=== PATIENT | female | born 1950 | race Caucasian/White ===

== ENCOUNTER 2017-01-09 10:14 | Outpatient (CLI) | payer OTHER ==
[2017-01-09 10:54] LABS: #Basophils 0.1 thou/uL (0.0-0.2); #Eosinphils 0.1 thou/uL (0.0-0.7); #Lymphocytes 1.5 thou/uL (1.20-3.40); #Monocytes 0.5 thou/uL (0.11-0.59); #Neutrophils 2.6 thou/uL (1.40-6.50); %Basophils 1.8 % (0.0-1.0); %Eosinophils 2.4 % (0.0-10.0); %Lymphocytes 31.6 % (21.0-51.0); %Monocytes 9.9 % (0.0-10.0); %Neutrophils 54.3 % (42.0-75.0); Hemoglobin 14.3 g/dL (12.0-16.0); Mean Corpuscular HGB CONC 31.9 g/dL (32.0-36.0); Mean Corpuscular Hemoglobin 28.8 pg (27.0-31.0); Mean Corpuscular Volume 90.4 fl (81.0-99.0); Mean Platelet Volume 10.3 fL (7.4-10.4); Platelet Count 238 thou/uL (130-400); RBC Distribution Width 12.3 % (11.5-14.5); Red Blood Cell (RBC) Count 4.97 mill/uL (4.20-5.40); White Blood Cell (WBC) Count 4.8 thou/uL (4.8-10.8)
[2017-01-09 11:00] LABS: Hemoglobin A1c 5.4 % (4.0-6.0)
[2017-01-09 11:38] LABS: ALT (SGPT) 18 U/L (8-55); AST (SGOT) 16 U/L (5-34); Albumin 4.1 g/dL (3.4-4.8); Alkaline Phosphatase 66 U/L (40-150); Anion Gap 13 mmol/L (10-20); BUN (Urea Nitrogen) 20 mg/dL (9.8-20.1); Bilirubin, Total 0.4 mg/dL (0.2-1.2); Calc. Creatinine Clearance 0 mL/min (70-130); Calcium 9.2 mg/dL (7.8-10.44); Carbon Dioxide 29 mmol/L (23-31); Cardiac Risk 3.9 (Less than 4.5); Chloride 102 mmol/L (98-107); Cholesterol 228 mg/dl (< 200 Desired); Estimated GFR-MDRD 66; Globulin 3.6 g/dL (2.4-3.5); Glucose 93 mg/dL (80-115); HDL Cholesterol 59 mg/dL (>60 Neg Risk); LDL Cholesterol, Calculated 144 mg/dL; Potassium 4.7 mmol/L (3.5-5.1); Protein, Total 7.7 g/dL (6.0-8.3); Sodium 139 mmol/L (136-145); Triglycerides 123 mg/dL (Less than 150)
[2017-01-10 22:24] LABS: HPV High Risk Type 16 Negative (Negative); HPV High Risk Type 18 Negative (Negative); HPV Other High Risk Types Negative (Negative)
== END 2017-01-09 10:15 | disposition home or self-care (01) ==
LOC: MADLABBHPM 10:14
PROVIDERS: ATTEND Family Medicine
DX: Z00.00 Encounter for general adult medical examination without abnormal findings (principal)
CPT/HCPCS: 36415; 80053; 80061; 83036; 84443; 85025; 87480; 87510; 87624; 87660; 88142; G0123

== ENCOUNTER 2021-12-05 09:23 | Outpatient (CLI) | payer MEDICARE | END 2021-12-05 09:24 | disposition home or self-care (01) | LOC: MADEKG 09:23 | PROVIDERS: ATTEND Family Medicine | DX: R00.9 Unspecified abnormalities of heart beat (principal) | CPT/HCPCS: 93005; 93010 ==

== ENCOUNTER 2022-03-20 09:27 | Outpatient (CLI) | payer MEDICARE ==
[2022-03-20 09:58] LABS: ALT (SGPT) 17 U/L (8-55); AST (SGOT) 16 U/L (5-34); Albumin 4.1 g/dL (3.4-4.8); Alkaline Phosphatase 63 U/L (40-110); Anion Gap 11 mmol/L (10-20); BUN (Urea Nitrogen) 19 mg/dL (9.8-20.1); Bilirubin, Total 0.5 mg/dL (0.2-1.2); Calc. Creatinine Clearance 0 mL/min (70-130); Calcium 9.7 mg/dL (7.8-10.44); Carbon Dioxide 30 mmol/L (23-31); Cardiac Risk 4.1 (Less than 4.5); Chloride 104 mmol/L (98-107); Cholesterol 228 mg/dl (< 200 Desired); Estimated GFR 73; Globulin 2.3 g/dL (2.4-3.5); Glucose 100 mg/dL (80-115); HDL Cholesterol 56 mg/dL (>60 Neg Risk); LDL Cholesterol, Calculated 154 mg/dL; Potassium 5.2 mmol/L (3.5-5.1); Protein, Total 6.4 g/dL (5.8-8.1); Sodium 140 mmol/L (136-145); Triglycerides 89 mg/dL (Less than 150)
== END 2022-03-20 09:28 | disposition home or self-care (01) ==
LOC: MADLABBHPM 09:27 → MADLAB 09:28
PROVIDERS: ATTEND Family Medicine
DX: I10 Essential (primary) hypertension (principal); E78.2 Mixed hyperlipidemia; E03.9 Hypothyroidism, unspecified
CPT/HCPCS: 80053; 80061; 84443

== ENCOUNTER 2022-04-05 10:21 | Outpatient (CLI) | payer MEDICARE ==
[2022-04-05 11:06] LABS: Thyroid Stimulating Hormone 3.6632 uIU/mL (0.35-4.94)
[2022-04-05 11:35] LABS: Anion Gap 15 mmol/L (10-20); BUN (Urea Nitrogen) 17 mg/dL (9.8-20.1); Calc. Creatinine Clearance 0 mL/min (70-130); Carbon Dioxide 28 mmol/L (23-31); Chloride 100 mmol/L (98-107); Estimated GFR 73; Glucose 103 mg/dL (80-115); Potassium 5.4 mmol/L (3.5-5.1); Sodium 138 mmol/L (136-145)
[2022-04-05 16:53] LABS: Free T4 (Free Thyroxine) 0.72 ng/dL (0.70-1.48)
== END 2022-04-05 10:22 | disposition home or self-care (01) ==
LOC: MADLABBHPM 10:21 → MADLAB 10:22
PROVIDERS: ATTEND Family Medicine
DX: E03.9 Hypothyroidism, unspecified (principal); E87.5 Hyperkalemia
CPT/HCPCS: 80048; 84439; 84443; 84481